=== PATIENT | female | born 1990 | race Caucasian/White ===

== ENCOUNTER 2018-11-25 16:13 | Emergency (ER) | payer MEDICAID ==
[~2018-11-25] VITALS: Ht 152.4 cm; Wt 43.1 kg
--- NOTE | 2018-11-25 16:42 | NUR ---
CAME IN FOR R Flank pain "started 11/19 today worse Fever", TO ER BED 9, HOOKED TO MONITOR, CHANGED TO GOWN, PROVIDED W WARM BLANKET, PT AOx4 , NOT IN DISTRESS, AWAITING MD SMITH
--- NOTE | 2018-11-25 17:41 | NUR ---
DR CAMPBELL AT BEDSIDE FOR EVAL.
--- NOTE | 2018-11-25 17:45 | NUR ---
URINE SAMPLE COLLECTED AND SENT TO LAB.
[2018-11-25 17:52] LABS: BASOPHILS % (AUTO) 0.4 % (0.0-2.0); EOSINOPHILS % (AUTO) 0.1 % (0.0-6.0); HEMATOCRIT 36 % (33-45); HEMOGLOBIN 11.9 g/dL (11.5-14.8); LYMPHOCYTES # (AUTO) 0.8 /CMM (0.8-4.8); LYMPHOCYTES % (AUTO) 10.3 % (20.0-44.0); MEAN CORPUSCULAR HGB CONC 33 g/dl (31.0-36.0); MEAN CORPUSCULAR VOLUME 89 fL (82-100); MONOCYTES # (AUTO) 0.6 /CMM (0.1-1.30); MONOCYTES % (AUTO) 7.3 % (2.0-12.0); NEUTROPHILS # (AUTO) 6.6 /CMM (1.8-8.9); NEUTROPHILS % (AUTO) 81.9 % (43.0-81.0); PLATELET COUNT (AUTO) 228 /CMM (150-450); WHITE BLOOD COUNT (AUTO) 8.1 K/uL (4.3-11.0)
[2018-11-25 17:54] LABS: APPEARANCE,URINE Cloudy (CLEAR); BILIRUBIN,URINE Negative (NEGATIVE); BLOOD, URINE Large Ery/uL (NEGATIVE); COLOR,URINE Yellow (YELLOW); KETONES,URINE Trace (NEGATIVE); LEUKOCYTE ESTERASE ,URINE Large (NEGATIVE); NITRITE, URINE Negative (NEGATIVE); PH,URINE 5.5 (5.0-8.0); PROTEIN,URINE 100 mg/dl (NEGATIVE); UGLUCOSE Negative (NEGATIVE); UROBILINOGEN,URINE 0.2 EU/dL (0.2)
[2018-11-25 17:59] LABS: CREATININE 0.6 mg/dL (0.6-1.3); POTASSIUM 3.7 mmol/L (3.5-5.1)
[2018-11-25] MEDS ORDERED: KETOROLAC TROMETHAMINE INJ 30 MG/ML VIAL IV ONE (18:00)
[2018-11-25] MEDS ORDERED: IV NS 0.9% 1,000 ML BAG IV ONE (18:00)
[2018-11-25 18:04] LABS: BACTERIA,URINE Many /HPF (None Seen); RBC,URINE 21-50 /HPF (0-2); SQUAMOUS EPITHELIAL CELL,UR Few /HPF (None Seen); WBC,URINE 21-50 /HPF (0-3)
[2018-11-25] MEDS ORDERED: KETOROLAC TROMETHAMINE INJ 30 MG/ML VIAL ONE (18:26)
[2018-11-25] MEDS ORDERED: GENTAMICIN 80 MG in IV D5W 50 ML IV ONE (19:00)
[2018-11-25] MEDS ORDERED: GENTAMICIN 80 MG/2 ML VIAL ONE (19:00)
[2018-11-25] MEDS ORDERED: CEFTRIAXONE 1GM BAG (ER ONLY) 1 GM/50 ML PIGGYBACK IV ONE (19:00)
[2018-11-25] MEDS ORDERED: CEFTRIAXONE 1GM BAG (ER ONLY) 50 ML IV ONE (19:00)
--- NOTE | 2018-11-25 19:15 | NUR ---
REPORT GIVEN TO CINDY CRESPO FOR [facility]
--- NOTE | 2018-11-25 19:15 | NUR ---
PT RECEIVED FROM CHERIE SEALS FOR [facility]. PT IN BED. AAOX4. NAD NOTED.
--- NOTE | 2018-11-25 19:35 | NUR ---
PT NOTED WITH TEMP OF 101.1. MD NOTIFIED. VERBAL ORDER RECEIVED TO GIVE TYLENOL 650MG PO X 1. ORDER NOTED AND CARRIED OUT
[2018-11-25] MEDS ORDERED: ACETAMINOPHEN 325 MG TABLET ONE (19:41)
[2018-11-25] MEDS ORDERED: ACETAMINOPHEN 650 MG/20.3 ML UDC PO ONE (20:00)
[2018-11-25 20:10] VITALS: BP 112/67
--- NOTE | 2018-11-25 20:11 | NUR ---
Patient discharged to home in stable condition. Written and verbal after care instructions given. Patient verbalizes understanding of instruction.IV removed. Catheter intact and site benign. Pressure and 4x4 applied to site. No bleeding noted. Pt ambulatory with a steady gait
== END 2018-11-25 20:17 | disposition home or self-care (01) ==
LOC: ER 16:20
DX: N12 Tubulo-interstitial nephritis, not specified as acute or chronic (principal)
CPT/HCPCS: 36415; 80048; 81001; 84703; 85025; 87077; 87086; 87186; 96365; 96367; 96375; 99283; J0696; J1580 ×2; J1885; J7030; J7060 ×2; 81000-TC

== ENCOUNTER 2019-05-27 09:05 | Emergency (ER) | payer MEDICAID ==
[~2019-05-27] VITALS: Ht 157.5 cm; Wt 43.1 kg
--- NOTE | 2019-05-27 09:11 | NUR ---
CAME IN FOR CHEST PAIN RAD TO L SHOULDER AND L ARM, ALSO C/O R SIDED LOWER BACK PAIN, PATIENT STATES "I LOST MY BROTHER LAST APR 28 AND SINCE THEN I FELT THE PAIN IN MY HEART". TO ER BED 1, HOOKED TO MONITOR, CHANGED TO HOSP GOWN, ENGINE ASSEMBLER AT BEDSIDE, PROVIDED W WARM BLANKET, PATIENT AOx4 , BREATHING EVEN AND UNLABORED, DR MORALES AT BEDSIDE
--- NOTE | 2019-05-27 09:32 | NUR ---
Patient discharged to home in stable condition. Written and verbal after care instructions given. Patient verbalizes understanding of instruction.
[2019-05-27 10:05] VITALS: BP 111/74
== END 2019-05-27 09:35 | disposition home or self-care (01) ==
LOC: ER 09:07
DX: F43.20 Adjustment disorder, unspecified (principal); R07.89 Other chest pain

== ENCOUNTER 2019-06-19 09:10 | Emergency (ER) | payer MEDICAID ==
[~2019-06-19] VITALS: Ht 154.9 cm; Wt 44.0 kg
[2019-06-19] MEDS ORDERED: IBUPROFEN 600 MG TABLET PO ONE ×2 (09:52→10:00)
[2019-06-19] MEDS ORDERED: DIAZEPAM 5 MG TABLET ONE (09:53)
[2019-06-19] MEDS ORDERED: DIAZEPAM 10 MG TABLET PO ONE (10:00)
--- NOTE | 2019-06-19 10:53 | NUR ---
Patient awake alert non distress made aware plan of care
[2019-06-19] MEDS ORDERED: LIDOCAINE 5% (PATCH) 1 EA PATCH TP SCH (11:30)
--- NOTE | 2019-06-19 11:34 | NUR ---
Lido patch place to left shoulder back
--- NOTE | 2019-06-19 12:52 | NUR ---
Patient awake alert noted able to ambulated non difficulties no nause and vomit no pain @ this time appreciated
--- NOTE | 2019-06-19 12:52 | NUR ---
Patient discharged to home in stable condition. Written and verbal after care instructions given. Patient verbalizes understanding of instruction.
[2019-06-19 12:53] VITALS: BP 124/56
== END 2019-06-19 12:53 | disposition home or self-care (01) ==
LOC: ER 09:10
DX: M25.512 Pain in left shoulder (principal); M25.522 Pain in left elbow
CPT/HCPCS: 73020; 73060-TC

== ENCOUNTER 2022-09-21 09:07 | Emergency (ER) | payer MEDICAID ==
[~2022-09-21] VITALS: Ht 149.9 cm; Wt 46.7 kg
[2022-09-21 09:12] VITALS: BP 121/66
== END 2022-09-21 10:19 | disposition home or self-care (01) ==
LOC: ER 09:17
DX: S63.614A Unspecified sprain of right ring finger, initial encounter (principal); M79.641 Pain in right hand; W50.2XXA Accidental twist by another person, initial encounter; Y93.89 Activity, other specified; Y92.89 Other specified places as the place of occurrence of the external cause; Y99.8 Other external cause status
CPT/HCPCS: 73130-TC

== ENCOUNTER 2023-05-19 19:49 | Emergency (ER) | payer MEDICAID ==
[~2023-05-19] VITALS: Ht 152.4 cm; Wt 48.1 kg
[2023-05-19 21:50] VITALS: BP 114/70; TEMP 98.2; O2SAT 100
== END 2023-05-19 21:55 | disposition home or self-care (01) ==
LOC: ER 20:02
DX: R20.2 Paresthesia of skin (principal); M54.6 Pain in thoracic spine